=== PATIENT | male | born 1995 | race Caucasian/White ===

== ENCOUNTER 2018-07-21 16:54 | Emergency (ER) | payer OTHER ==
--- NOTE | 2018-07-21 18:06 | EDPHY ---
H & P Stated Complaint: head injury while playing soccer today, short term memory issues Time Seen by Provider: 07/21/18 17:50 HPI/ROS: CHIEF COMPLAINT: Head injury HISTORY OF PRESENT ILLNESS: 22-year-old male presents with head injury. 5 hr prior to arrival, he was playing soccer. He did a bicycle kick and fell backwards, striking his head on the turf. He was initially confused and amnestic to the event. Also perseverating. Mental status is now improving. He is remembering more of the event and is no longer confused or perseverating. No headache. No neck pain. No other injuries. REVIEW OF SYSTEMS: complete 10 point ROS negative except at noted in the HPI - Medical/Surgical History Hx Asthma: No Hx Chronic Respiratory Disease: No Hx Diabetes: No Hx Cardiac Disease: No Hx Renal Disease: No Hx Cirrhosis: No Hx Alcoholism: No Hx HIV/AIDS: No Hx Splenectomy or Spleen Trauma: No Other PMH: concussions - Social History Smoking Status: Never smoked Alcohol Use: Sober - Physical Exam Exam: General Appearance: Alert, pleasant and joking Head: Atraumatic Eyes: No conjunctival erythema, PERRLA, EOMI ENT, Mouth: no oral trauma, no bony tenderness Neck: Nontender, full range of motion without pain Respiratory: No chest wall tenderness, lungs clear bilaterally Cardiovascular: Regular rate and rhythm Abdomen: Abdomen is soft and nontender Skin: No lacerations, no abrasions Back: No midline T/L/S tenderness Extremities: no extremity tenderness or deformity, full range of motion without pain Neurological: A&Ox3, normal motor function, normal sensory exam, cranial nerves intact Psychiatric: Mood and affect normal Constitutional: Initial Vital Signs Temperature (C) 36.6 C 07/21/18 16:58 Heart Rate 66 07/21/18 16:58 Respiratory Rate 18 07/21/18 16:58 Blood Pressure 144/89 H 07/21/18 16:58 O2 Sat (%) 97 07/21/18 16:58 O2 Delivery Mode Room Air Allergies/Adverse Reactions: No Known Allergies Allergy (Unverified 07/21/18 16:58) Home Medications: Medication Instructions Recorded NK [No Known Home Meds] 07/21/18 Medical Decision Making ED Course/Re-evaluation: This patient presents after a minor head injury. He does not have a headache. Amnesia and perseveration are resolving. Glascow Coma Scale is 15 and neurologic exam is normal. Neuro imaging is not indicated. Concussion instructions given. Differential Diagnosis: includes though not limited to ICH, concussion, fracture. Departure - Departure Disposition: Home, Routine, Self-Care Clinical Impression: Concussion Qualifiers: Encounter type: initial encounter Loss of consciousness presence/duration: without LOC Qualified Code(s): S06.0X0A - Concussion without loss of consciousness, initial encounter Condition: Good Instructions: Concussion (ED) Additional Instructions: Return for worsening symptoms, including headache or confusion. Referrals: Sports Medicine [Outside] - As per Instructions
[2018-07-21 18:24] VITALS: BP 124/78
== END 2018-07-21 18:20 | disposition home or self-care (01) ==
DX: S06.0X0A Concussion without loss of consciousness, initial encounter (principal); W01.0XXA Fall on same level from slipping, tripping and stumbling without subsequent striking against object, initial encounter; Y93.66 Activity, soccer; Y92.322 Soccer field as the place of occurrence of the external cause